=== PATIENT | female | born 1940 | race Caucasian/White ===

== ENCOUNTER 2018-01-26 04:07 | Inpatient (IN) | payer OTHER, MEDICAID ==
--- NOTE | 2018-01-26 04:22 | EDPHY ---
H & P Time Seen by Provider: 01/26/18 04:10 HPI/ROS: Chief Complaint: Cough, difficulty breathing HPI: 77-year-old woman presenting from [facility] with cough and difficulty breathing. Patient has had this for several days per EMS report. She had a chest x-ray yesterday which was negative. Patient has been refusing her Lasix. States she has been refusing this the last 2 days because she has been out out about and does not want have to increasing urination. She only takes 20 mg every morning for edema. No fevers or chills. Cough is nonproductive. correction called EMS because the patient's oxygen saturations were in the 80s. On EMS arrival she was satting at 90% on room air. They did note diffuse expiratory wheezes. No chest pain. No nausea or vomiting. She has been ordered DuoNeb treatments starting 4 days ago. ROS: 10 point Review of Systems is negative except as noted in the HPI. PMH: Hypothyroidism, hyperkalemia, Lewy body dementia, dependent edema Social History: No smoking, no alcohol, no recreational drug use Family History: non-contributory Physical Exam: Gen: Awake, Alert, No Distress HEENT: Nose: no rhinorrhea Eyes: PERRLA, EOMI Mouth: Moist mucosa Neck: Supple, no JVD Chest: nontender, lungs clear to auscultation, no wheezes, bibasilar rales are present Heart: S1, S2 normal, no murmur Abd: Soft, non-tender, no guarding Back: no CVA tenderness, no midline tenderness Ext: 1+ nonpitting edema, there is evidence of venous stasis disease, non- tender, no erythema Skin: no rash Neuro: CN II-XII intact, Sensation grossly intact, Strength 5/5 in bilateral upper and lower extremities - Personal History Tetanus Vaccine Date: unknown - Medical/Surgical History Hx Asthma: No Hx Chronic Respiratory Disease: No Hx Diabetes: No Hx Cardiac Disease: No Hx Renal Disease: No Hx Cirrhosis: No Hx Alcoholism: No Hx HIV/AIDS: No Hx Splenectomy or Spleen Trauma: No Other PMH: pmh- thyroid CA, melanoma, chronic low back pain, arthritis, incontience, 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 psh- thryoidectomy r/t CA - Social History Smoking Status: Never smoked Constitutional: Initial Vital Signs Temperature (C) 37.1 C 01/26/18 04:05 Heart Rate 77 01/26/18 04:05 Respiratory Rate 18 01/26/18 04:05 Blood Pressure 138/87 H 01/26/18 04:05 O2 Sat (%) 90 L 01/26/18 04:05 O2 Delivery Mode Room Air O2 (L/minute) 2 Allergies/Adverse Reactions: Sulfa (Sulfonamide Antibiotics) Allergy (Severe, Verified 09/14/09 14:39) Anaphylaxis COLOR BLUE IN ANY MEDICATION Allergy (Uncoded 09/14/09 14:40) Home Medications: Medication Instructions Recorded Bisacodyl 01/26/18 CRANBERRY 01/26/18 Cetirizine 01/26/18 Ipratropium 01/26/18 Klor-Con M10 01/26/18 Lasix 20 MG (*) 01/26/18 Levothyroxine 01/26/18 Milk of Magnesia 01/26/18 Motrin Ib 01/26/18 Nystatin Powder 01/26/18 Pazeo 01/26/18 Restasis Opht Drops(*) 01/26/18 Tobradex Eye Ointment 01/26/18 Vitamin C 01/26/18 Medical Decision Making - Diagnostics Imaging Results: Chest x-ray has very poor inspiratory effort. There is cardiomegaly. There is some cephalization and some obscuration of the right heart border per my interpretation. Imaging: I viewed and interpreted images myself ED Course/Re-evaluation: 77-year-old woman presenting with shortness of breath worsening over the last couple days. She has oxygen saturations of 87% on room air after a neb treatment by EMS. Patient has no wheezing. She does have some bibasilar rales. She has been refusing her Lasix for the last several days, however she is on 20 mg daily for peripheral edema only. I have not found any records for congestive heart failure. Chest x-ray shows cephalization with very poor inspiratory effort a difficult to assess study. Patient has an elevated BNP. I have discussed with Dr. Shahid, hospitalist. He will admit to his service for further care. He is requesting 20 mg of Lasix IV now. - Data Points Laboratory Results: Laboratory Results 01/26/18 04:37 01/26/18 04:37 01/26/18 01/26/18 04:37 04:37 WBC 7.21 10^3/uL 10^3/uL (3.80-9.50) RBC 4.48 10^6/uL 10^6/uL (4.18-5.33) Hgb 13.9 g/dL g/dL (12.6-16.3) Hct 40.8 % % (38.0-47.0) MCV 91.1 fL fL (81.5-99.8) MCH 31.0 pg pg (27.9-34.1) MCHC 34.1 g/dL g/dL (32.4-36.7) RDW 13.2 % % (11.5-15.2) Plt Count 213 10^3/uL 10^3/uL (150-400) MPV 9.6 fL fL (8.7-11.7) Neut % (Auto) 71.5 % % (39.3-74.2) Lymph % (Auto) 14.4 % L % (15.0-45.0) [place] % (Auto) 10.7 % % (4.5-13.0) Eos % (Auto) 2.4 % % (0.6-7.6) Baso % (Auto) 0.6 % % (0.3-1.7) Nucleat RBC Rel Count 0.0 % % (0.0-0.2) Absolute Neuts (auto) 5.16 10^3/uL 10^3/uL (1.70-6.50) Absolute Lymphs (auto) 1.04 10^3/uL 10^3/uL (1.00-3.00) Absolute Monos (auto) 0.77 10^3/uL 10^3/uL (0.30-0.80) Absolute Eos (auto) 0.17 10^3/uL 10^3/uL (0.03-0.40) Absolute Basos (auto) 0.04 10^3/uL 10^3/uL (0.02-0.10) Absolute Nucleated RBC 0.00 10^3/uL 10^3/uL (0-0.01) Immature Gran % 0.4 % % (0.0-1.1) Immature Gran # 0.03 10^3/uL 10^3/uL (0.00-0.10) Sodium 143 mEq/L mEq/L (135-145) Potassium 3.7 mEq/L mEq/L (3.5-5.2) Chloride 107 mEq/L mEq/L (97-110) Carbon Dioxide 23 mEq/l mEq/l (22-31) Anion Gap 13 mEq/L mEq/L (8-16) BUN 19 mg/dL mg/dL (7-23) Creatinine 0.8 mg/dL mg/dL (0.6-1.0) Estimated GFR > 60 Glucose 99 mg/dL mg/dL (70-100) Calcium 8.1 mg/dL L mg/dL (8.5-10.4) Troponin I < 0.012 ng/mL ng/mL (0.000-0.034) NT-Pro-B Natriuret Pep 967 pg/mL H pg/mL (0-450) Medications Given: Discontinued Medications Furosemide (Lasix Injection) 20 mg IVP EDNOW ONE Stop: 01/26/18 05:41 Last Admin: 01/26/18 06:10 Dose: 20 mg Departure - Departure Disposition: [facility] Inpatient Acute Clinical Impression: Acute exacerbation of congestive heart failure Condition: Fair
[2018-01-26 04:46] LABS: PLATELET COUNT 213 10^3/uL (150-400)
--- NOTE | 2018-01-26 05:37 | CPEKG ---
Heart Rate: 70 RR Interval: 857 P-R Interval: 208 QRSD Interval: 88 QT Interval: 396 QTC Interval: 428 P [place]: 0 QRS [place]: -46 T Wave [place]: 78 EKG Severity - ABNORMAL ECG - EKG Impression: SINUS RHYTHM EKG Impression: LEFT ANTERIOR FASCICULAR BLOCK EKG Impression: ANTERIOR INFARCT, OLD Electronically Signed By: Ehsan Lucas 26-Jan-2018 06:29:21
[2018-01-26] MEDS ORDERED: FUROSEMIDE 20 MG/2 ML VIAL IVP ONE (05:40)
[2018-01-26] MEDS ORDERED: ONDANSETRON 4 MG/2 ML VIAL IVP PRN (05:46)
[2018-01-26] MEDS ORDERED: ACETAMINOPHEN 325 MG TAB PO PRN (05:46)
[2018-01-26] MEDS ORDERED: ONDANSETRON DISINTEGRATING 4 MG TAB PO PRN (05:46)
--- NOTE | 2018-01-26 06:15 | PDGENHP ---
History and Physical - Chief Complaint SOB - History of Present Illness 77 yo F w/ dementia, hypothyroid, and diastolic dysfunction presents with SOB. Patient describes several weeks of progressive SOB, worse when she lay flats. She also complains of about 20 lb weight gain over the last month or two. She denies fevers, chills. She takes furosemide 20 mg qD but may have missed a few doses here and there. She denies chest pain. History Information - Allergies/Home Medication List Allergies/Adverse Reactions: Sulfa (Sulfonamide Antibiotics) Allergy (Severe, Verified 09/14/09 14:39) Anaphylaxis COLOR BLUE IN ANY MEDICATION Allergy (Uncoded 09/14/09 14:40) Home Medications: Bisacodyl 01/26/18 [Last Taken Unknown] CRANBERRY 01/26/18 [Last Taken Unknown] Cetirizine 01/26/18 [Last Taken Unknown] Ipratropium 01/26/18 [Last Taken Unknown] Klor-Con M10 01/26/18 [Last Taken Unknown] Lasix 20 MG (*) 01/26/18 [Last Taken Unknown] Levothyroxine 01/26/18 [Last Taken Unknown] Milk of Magnesia 01/26/18 [Last Taken Unknown] Motrin Ib 01/26/18 [Last Taken Unknown] Nystatin Powder 01/26/18 [Last Taken Unknown] Pazeo 01/26/18 [Last Taken Unknown] Restasis Opht Drops(*) 01/26/18 [Last Taken Unknown] Tobradex Eye Ointment 01/26/18 [Last Taken Unknown] Vitamin C 01/26/18 [Last Taken Unknown] I have personally reviewed and updated: family history, medical history - Past Medical History dementia Additional medical history: Thyroid CA s/p thyroidectomy - Surgical History Reports: thyroid surgery - Family History Positive for: CAD - Social History Smoking Status: Never smoked Review of Systems Review of Systems: ROS: 10pt was reviewed & negative except for what was stated in HPI & below Physical Exam Physical Exam: Temp Pulse Resp BP Pulse Ox 37.1 C 64 18 147/89 H 95 01/26/18 04:05 01/26/18 06:11 01/26/18 06:11 01/26/18 06:11 01/26/18 06:11 O2 (L/minute) 2 Constitutional: no apparent distress, chronically ill appearing Eyes: PERRL, EOMI Ears, Nose, Mouth, Throat: moist mucous membranes, no oral mucosal ulcers Cardiovascular: regular rate and rhythym, systolic murmur, edema (1+ b/l WILFREDO L>R ) Respiratory: no respiratory distress, reduced air movement, inspiratory crackles , rhonchi Gastrointestinal: normoactive bowel sounds, soft, non-tender abdomen Skin: warm, normal color, other (LE changes c/w venous stasis dermatitis) Musculoskeletal: full muscle strength, no muscle tenderness Neurologic: AAOx3, CN II-XII Intact, other (R ptosis) Psychiatric: interacting appropriately, not anxious Lab Data & Imaging Review 01/26/18 04:37 01/26/18 04:37 WBC 7.21 10^3/uL (3.80-9.50) 01/26/18 04:37 RBC 4.48 10^6/uL (4.18-5.33) 01/26/18 04:37 Hgb 13.9 g/dL (12.6-16.3) 01/26/18 04:37 Hct 40.8 % (38.0-47.0) 01/26/18 04:37 MCV 91.1 fL (81.5-99.8) 01/26/18 04:37 MCH 31.0 pg (27.9-34.1) 01/26/18 04:37 MCHC 34.1 g/dL (32.4-36.7) 01/26/18 04:37 RDW 13.2 % (11.5-15.2) 01/26/18 04:37 Plt Count 213 10^3/uL (150-400) 01/26/18 04:37 MPV 9.6 fL (8.7-11.7) 01/26/18 04:37 Neut % (Auto) 71.5 % (39.3-74.2) 01/26/18 04:37 Lymph % (Auto) 14.4 % (15.0-45.0) L 01/26/18 04:37 [place] % (Auto) 10.7 % (4.5-13.0) 01/26/18 04:37 Eos % (Auto) 2.4 % (0.6-7.6) 01/26/18 04:37 Baso % (Auto) 0.6 % (0.3-1.7) 01/26/18 04:37 Nucleat RBC Rel Count 0.0 % (0.0-0.2) 01/26/18 04:37 Absolute Neuts (auto) 5.16 10^3/uL (1.70-6.50) 01/26/18 04:37 Absolute Lymphs (auto) 1.04 10^3/uL (1.00-3.00) 01/26/18 04:37 Absolute Monos (auto) 0.77 10^3/uL (0.30-0.80) 01/26/18 04:37 Absolute Eos (auto) 0.17 10^3/uL (0.03-0.40) 01/26/18 04:37 Absolute Basos (auto) 0.04 10^3/uL (0.02-0.10) 01/26/18 04:37 Absolute Nucleated RBC 0.00 10^3/uL (0-0.01) 01/26/18 04:37 Immature Gran % 0.4 % (0.0-1.1) 01/26/18 04:37 Immature Gran # 0.03 10^3/uL (0.00-0.10) 01/26/18 04:37 Sodium 143 mEq/L (135-145) 01/26/18 04:37 Potassium 3.7 mEq/L (3.5-5.2) 01/26/18 04:37 Chloride 107 mEq/L (97-110) 01/26/18 04:37 Carbon Dioxide 23 mEq/l (22-31) 01/26/18 04:37 Anion Gap 13 mEq/L (8-16) 01/26/18 04:37 BUN 19 mg/dL (7-23) 01/26/18 04:37 Creatinine 0.8 mg/dL (0.6-1.0) 01/26/18 04:37 Estimated GFR > 60 01/26/18 04:37 Glucose 99 mg/dL (70-100) 01/26/18 04:37 Calcium 8.1 mg/dL (8.5-10.4) L 01/26/18 04:37 Troponin I < 0.012 ng/mL (0.000-0.034) 01/26/18 04:37 NT-Pro-B Natriuret Pep 967 pg/mL (0-450) H 01/26/18 04:37 Visualized and Interpreted Chest x-ray results: Yes Chest X-Ray results: other (Vascular congestion) Visualized and Interpreted EKG results: Yes EKG Interpretation: Positive for: normal sinsus rhythm, other (LAFB, poor R wave progression) Assessment & Plan Assessment: 77 yo F p/w SOB 2/2 diastolic CHF exacerbation. Plan: 1. Acute exacerbation of chronic,diastolic HF - Several weeks of progressive SOB , orthopnea, and weight gain. TTE in 2016 showed diastolic dysfunction and preserved EF. BNP>900. She denies symptoms c/w infection. - Furosemide 20 mg IV BID - Daily weights, monitor I/os, cardiac diet 2. Dementia - Describes as possibly Lewy body or FTD; patient is appropriate and cooperative on my exam. - Continue home medications 3. Hx of thyroid CA - S/p thyroidectomy, now on LTX - Will check TSH to assure not contributing to above Diet - Cardiac Code - Full Ppx - LMWH Dispo - Admit under observation status
[2018-01-26] MEDS ORDERED: BISACODYL 10 MG SUPP PR PRN (10:24)
[2018-01-26] MEDS ORDERED: DOCUSATE SODIUM 100 MG CAP PO PRN (10:29)
[2018-01-26] MEDS ORDERED: MAGNESIUM HYDROXIDE 30 ML UDCUP PO PRN (10:29)
[2018-01-26] MEDS ORDERED: IPRATROPIUM/ALBUTEROL 3 ML DEYVIAL IH PRN (10:29)
[2018-01-26] MEDS ORDERED: LEVOTHYROXINE 125 MCG TAB PO SCH (10:30)
[2018-01-26] MEDS ORDERED: POTASSIUM CL 10 MEQ TAB PO SCH (10:30)
[2018-01-26] MEDS ORDERED: PROTOCOL POTASSIUM 1 DOSE MISC PRN (10:32)
--- NOTE | 2018-01-26 11:25 | WOCRNPDOC ---
WOCRN Advanced Assessment Note - Skin Integrity Problem, Advanced Assess Left Lower Leg Dressing Type: Foam Bordered Dressing Description: Clean/Dry Exudate Amount: Scant Exudate Color: Yellow Exudate Characteristic(s): Clear Integumentary Issue Intervention: Dressing Applied, Dressing Initialed & Dated, Hydrogel Applied Krista Wound Tissue: Hemosiderin Staining, Venous Dermatitis Krisat Wound Swelling: None Wound Bed Color: Red, Yellow Wound Bed Constitution: Granulation Tissue (60%), Red/[place] - Non Granular Tissue (40%) Wound Edges: Irregular Site Odor: None Site Measurement - Head-to-Toe Length X Width X Depth (cm): 2cmx2.5cmx0.1cm Skin Integrity Problem Comment: Wound on lower anterior aspect of L leg, appearance consistent w/ venous stasis wound. Patient's lower legs were previously edematous; now edema is resolving, and skin has a puckered appearance. No significant edema noted currently, though patient does have chronic skin changes associated w/ venous insufficiency. Wound itself is discrete w/ no periwound swelling or erythema. Wound will likely resolve w/ adequate diuresis. Hydrogel and Allevyn applied. Wound care will follow up again on 02/01.
[2018-01-26] MEDS: ENOXAPARIN 40 MG/0.4 ML SYR SC SCH (11:33)
[2018-01-26] MEDS: CETIRIZINE 10 MG TAB PO SCH (11:43)
[2018-01-26] MEDS: POLYETHYLENE GLYCOL 3350 17 GM PKT PO SCH (11:44)
[2018-01-26] MEDS: NYSTATIN POWDER 15 GM BTL TP SCH ×2 (11:45→20:53)
[2018-01-26] MEDS: cycloSPORINE 0.05% 30 DROPERETTE/BOX EACHEYE SCH ×2 (11:46→20:54)
[2018-01-26] MEDS: OLOPATADINE HCL EACHEYE SCH (11:47)
--- NOTE | 2018-01-26 12:30 | ASMTCMCOM ---
CM Note CM Note Notes: Chart reviewed for discharge planning purposes. Admitted via ED from [facility] with increasing cough, Has notable been refusing her lasix. Her BNP is elevated. Needs to be determined. Referral placed in allscripts to [facility] where she will likely return. Plan: To [facility] when medically cleared for discharge Date Signed: 01/26/2018 12:29 PM Electronically Signed By:Meme Cuevas RN
--- NOTE | 2018-01-26 13:37 | ECHO ---
[email or web address] [address] [address] Main: [phone] Fax: Transthoracic Echocardiogram Name: FRANCISCA KENNEY MR#: [id number] Study Date: 01/26/2018 Study Time: 10:55 AM Date of : 1940 Age: 77 year(s) Height: 172.7 cm (68 in.) Weight: 72.58 kg (160 lb.) BSA: 1.86 m2 Gender: Female Examination: Echo Indication: Acute Heart Failure Image Quality: Contrast: Requested by: Sravani Weiss BP: 127 mmHg/76 mmHg Heart Rate: Rhythm: Indication: Acute Heart Failure Procedure Staff Die Finisher Forging: Yemi Godinez RDCS Reading Physician: Gracia Walters MD Requesting Provider: Conclusions: Normal size left ventricle. No LV hypertrophy. Normal global systolic LV function. EF is 74 %. No regional wall motion abnormality. Grade 1 diastolic dysfunction (abnormal relaxation). Normal size right ventricle. Normal RV function. no significant valvular disease. No previous echo Measurements: Chambers Valvular Assessment AV/MV Valvular Assessment TV/PV Normal Normal Normal Name Value Range Name Value Range Name Value Range Ao Lata (MM): 3.2 cm (2.2 cm-3.7 AV Vmax: 1.57 m/s (1 m/s-1.7 PV Vmax: 0.94 m/s (0.6 m/s-0.9 cm) m/s) m/s) IVSd (2D): 1.0 cm (0.6 cm-1.1 AV maxP mmHg ( - ) PV PGmax: 4 mmHg ( - ) cm) LVOT Vmax: 0.78 m/s (0.7 m/s-1.1 LVDd (2D): 4.3 cm (3.9 cm-5.3 m/s) cm) MV E Vmax: 0.60 m/s ( - ) LVDs (2D): 2.4 cm (2.1 cm-4 MV A Vmax: 0.93 m/s ( - ) cm) MV E/A: 0.65 ( - ) LVPWd (2D): 1.1 cm ( - ) LVEF (2D): 74 (>=54 %) Continued Measurements: Chambers Valvular Assessment AV/MV Name Value Name Value Patient: FRANCISCA KENNEY Study Date: 01/26/2018 Page 1 of 2 10:55 AM LADs Lon.3 cm MV E' Septal: 0.04 m/s LA Area: 20.1 cm2 MV E/E' Septal: 14.00 LA Volume: 63 ml MV E/E' Lateral: 14.60 LA Volume Index: 33.9 ml/m2 Findings: Left Ventricle: Normal size left ventricle. No LV hypertrophy. Normal global systolic LV function. EF is 74 %. No regional wall motion abnormality. Grade 1 diastolic dysfunction (abnormal relaxation). Right Ventricle: Normal size right ventricle. Normal RV function. Left Atrium: The left atrium is normal in size. Right Atrium: The right atrium is normal in size. Mitral Valve: Mild mitral valve leaflet calcification is present. Trivial mitral valve regurgitation. Aortic Valve: Mild aortic cusp calcification is noted. The aortic valve is tri-leaflet. There is no aortic valve regurgitation. Tricuspid Valve: The tricuspid valve appears normal. Trivial tricuspid valve regurgitation. The pulmonary artery pressure is normal. Pulmonic Valve: The pulmonic valve is normal in appearance and function. Aorta: The aorta is normal. Pericardium: Small pericardial effusion. There is a small circumferential pericardial effusion with echogenicity within. There is no evidence of a pericardial tamponade. (No Signature Object) Patient: FRANCISCA KENNEY Study Date: 01/26/2018 Page 2 of 2 10:55 AM [id number]
[2018-01-26] MEDS: FUROSEMIDE 20 MG/2 ML VIAL IVP SCH ×2 (13:58→20:53)
[2018-01-26] MEDS: LEVOTHYROXINE 150 MCG TAB PO SCH (14:54)
--- NOTE | 2018-01-26 15:18 | HOSPPROG ---
Hospitalist Progress Note Assessment/Plan: Acute exacerbation of chronic,diastolic HF - Still a bit orthopneic. Echo shows nl EF, grade 1 diastolic dysfunction - Cont Furosemide 20 mg IV BID - Daily weights, monitor I/os, cardiac diet - also consider viral URI, check respiratory viral panel Dementia - Daughter has concerns about decisional capacity, especially related to her refusing medications at SNF - Continue home medications - Ethics consult to help assess decisional capacity Hx of thyroid CA - S/p thyroidectomy, now on LTX. TSH elevated - increase levothyroxine - will need rpt TSH in 4-6 weeks Diet - Cardiac Code - Full Ppx - LMWH Dispo - Cont obs, poss d/c tomorrow, will reassess Subjective: Pt doing ok. Coughing a bit. No fevers. She endorses orthopnea, LE edema is a little better today. No CP. Objective: Vital Signs Temp Pulse Resp BP Pulse Ox 36.9 C 87 18 146/88 H 90 L 01/26/18 11:54 01/26/18 11:54 01/26/18 11:54 01/26/18 11:54 01/26/18 11:54 01/25/18 01/26/18 01/27/18 05:59 05:59 05:59 Intake Total 240 Output Total 750 Balance -510 - Physical Exam Constitutional: no apparent distress Eyes: PERRL Ears, Nose, Mouth, Throat: moist mucous membranes Cardiovascular: regular rate and rhythym Respiratory: no respiratory distress, inspiratory crackles Gastrointestinal: normoactive bowel sounds, soft, non-tender abdomen Skin: warm Musculoskeletal: other (1-2+ b/l LE edema) Psychiatric: poor judgement, poor memory ICD10 Worksheet Patient Problems: Problems Problem Status Onset Acute exacerbation of congestive heart failure Acute Abdominal pain Acute Altered mental status Acute Constipation Acute Delusions Acute Urinary tract infection Acute
[2018-01-26] MEDS ORDERED: NON-FORMULARY NEW DRUG (Polyvinyl Alcohol/Povidone/Pf [Refresh Classic Eye Drops] 1 EACH) EACHEYE SCH (16:00)
[2018-01-26] MEDS: TEARS/DEXTRAN 70/HYPROMELLOSE 15 ML OPHT.BTL EACHEYE SCH ×2 (16:28→20:53)
[2018-01-26] MEDS ORDERED: POTASSIUM CL 10 MEQ TAB PO ONE (19:52)
[2018-01-26] MEDS: TOBRAMYCIN/DEXAMETH 3.5 GM OPHT.OINT EACHEYE SCH (20:54)
[2018-01-26] MEDS ORDERED: traZODone 50 MG TAB PO SCH (21:00)
[2018-01-27] MEDS: LEVOTHYROXINE 150 MCG TAB PO SCH (06:25)
[2018-01-27] MEDS ORDERED: POTASSIUM CL 10 MEQ TAB PO ONE ×2 (07:30→20:02)
[2018-01-27] MEDS: POLYETHYLENE GLYCOL 3350 17 GM PKT PO SCH (09:02)
[2018-01-27] MEDS: FUROSEMIDE 20 MG/2 ML VIAL IVP SCH ×2 (09:02→20:32)
[2018-01-27] MEDS: ENOXAPARIN 40 MG/0.4 ML SYR SC SCH (09:02)
[2018-01-27] MEDS: CETIRIZINE 10 MG TAB PO SCH (09:03)
[2018-01-27] MEDS: OLOPATADINE HCL EACHEYE SCH (09:15)
[2018-01-27] MEDS: NYSTATIN POWDER 15 GM BTL TP SCH ×2 (09:15→20:32)
[2018-01-27] MEDS: TEARS/DEXTRAN 70/HYPROMELLOSE 15 ML OPHT.BTL EACHEYE SCH ×3 (09:16→20:31)
[2018-01-27] MEDS: cycloSPORINE 0.05% 30 DROPERETTE/BOX EACHEYE SCH ×3 (09:16→20:33)
[2018-01-27] MEDS: POTASSIUM CL 10 MEQ TAB PO SCH (10:59)
--- NOTE | 2018-01-27 13:14 | HOSPPROG ---
Hospitalist Progress Note Assessment/Plan: AHRF 2/2 acute exacerbation of chronic, diastolic HF + viral URI (rhino/ enterovirus) - Echo shows nl EF, grade 1 diastolic dysfunction. - Cont Furosemide 20 mg IV BID - Daily weights, monitor I/os, cardiac diet - trial xopenex nebs, add guaifenesin, supportive care for viral component - defer steroids due to risk of worsening agitation with LBD - wean O2 as able Dementia - Lewy body disease. Followed by Dr. Quiroga. - unable to give anti-psychotics - cont home pm trazodone - as a last resort, will provide prn order for very low dose ativan if agitation becomes a safety issue Hx of thyroid CA - S/p thyroidectomy, now on LTX. TSH elevated - increased levothyroxine - will need rpt TSH in 4-6 weeks Diet - Cardiac Code - Full Ppx - LMWH Dispo - Change to inpt for ongoing management of hypoxemia, HF and viral URI. Daughter, Isabella, is MDPOA. Discussed care plan with daughter and RN. Hopefully home in am. Subjective: Pt is up in chair. Denies CP. She has wet cough. LE edema a little better. No fevers. Denies SOB at rest. She is intermittently agitated , wants to go home. Objective: Vital Signs Temp Pulse Resp BP Pulse Ox 37.1 C 75 17 148/79 H 91 L 01/27/18 12:00 01/27/18 12:00 01/27/18 12:00 01/27/18 12:00 01/27/18 12:00 Microbiology 01/26/18 16:40 Respiratory Panel (PCR) - Final Nasal, Sinus - Anaerobic Tube/Swab Human Rhinovirus/Enterovirus Laboratory Results 01/27/18 03:22 01/26/18 01/27/18 01/28/18 05:59 05:59 05:59 Intake Total 940 Output Total 750 200 Balance 190 -200 - Physical Exam Constitutional: no apparent distress Eyes: PERRL Ears, Nose, Mouth, Throat: moist mucous membranes Cardiovascular: regular rate and rhythym Respiratory: no respiratory distress, reduced air movement, expiratory wheeze, inspiratory crackles Gastrointestinal: normoactive bowel sounds, soft, non-tender abdomen Skin: warm Musculoskeletal: other (1-2+ b/l LE brawny edema) Psychiatric: agitated, poor insight, poor judgement, poor memory ICD10 Worksheet Patient Problems: Problems Problem Status Onset Acute exacerbation of congestive heart failure Acute Abdominal pain Acute Altered mental status Acute Constipation Acute Delusions Acute Urinary tract infection Acute
[2018-01-27] MEDS ORDERED: traZODone 50 MG TAB PO SCH ×2 (13:52→19:00)
[2018-01-27] MEDS ORDERED: LORazepam 2 MG/ML INJ IVP PRN (13:59)
--- NOTE | 2018-01-27 14:21 | PDMN ---
Medical Necessity Medical necessity: C/M review: Patient meets INPT criterie under MCG M-190 [place] Failure: Acute exacerbation of chronic, diastolic heart failure, orthopnea, normal EF, grade1 diastolic dysfunction on echocardiogram, hypoxemia , viral upper respiratory infection, elevated TSH - 7.560, requiring Ethics consult to help assist decisional capacity, planned Palliative Care consult, trial Xopenex nebs, defer steroids due risk of worsening agitation with Lewy body dementia, agitation, ongoing IV Lasix BID, increased oral levothyroxine to 150 mcg daily, cardiac monitoring, pulse oximetry, supplemental O2- wean as able, daily weights, monitor I&O, acute inpt PT/OT, comorbid Lewy body dementia (unable to give antipsychotics), history of thyroid cancer S/P thyroidectomy. anticipates . 2 MN LOS for ongoing med nec for eval and TX of above. patient is Medicare Advantage which follows guidelines CMS puts forth.
[2018-01-27] MEDS: guaiFENesin 600 MG TAB.ER PO SCH ×2 (15:09→20:32)
[2018-01-27] MEDS: LEVALBUTEROL 1.25 MG/3 ML DEYVIAL IH SCH ×2 (16:45→22:23)
[2018-01-27] MEDS: traZODone 50 MG TAB PO SCH (18:02)
[2018-01-27] MEDS: TOBRAMYCIN/DEXAMETH 3.5 GM OPHT.OINT EACHEYE SCH (20:31)
[2018-01-27] MEDS ORDERED: LEVALBUTEROL 1.25 MG/3 ML DEYVIAL IH SCH (22:00)
[2018-01-27] MEDS: GUAIFENESIN/DM 10 ML UDCUP PO PRN (22:17)
[2018-01-28] MEDS: LEVOTHYROXINE 150 MCG TAB PO SCH (06:17)
[2018-01-28] MEDS ORDERED: POTASSIUM CL 10 MEQ TAB PO ONE (07:33)
[2018-01-28] MEDS: POLYETHYLENE GLYCOL 3350 17 GM PKT PO SCH (07:57)
[2018-01-28] MEDS: POTASSIUM CL 10 MEQ TAB PO SCH (07:57)
[2018-01-28] MEDS: guaiFENesin 600 MG TAB.ER PO SCH ×2 (07:57→19:52)
[2018-01-28] MEDS: CETIRIZINE 10 MG TAB PO SCH (07:57)
[2018-01-28] MEDS: FUROSEMIDE 20 MG/2 ML VIAL IVP SCH ×2 (07:57→19:49)
[2018-01-28] MEDS: cycloSPORINE 0.05% 30 DROPERETTE/BOX EACHEYE SCH ×3 (07:58→22:38)
[2018-01-28] MEDS: ENOXAPARIN 40 MG/0.4 ML SYR SC SCH (07:58)
[2018-01-28] MEDS: GUAIFENESIN/DM 10 ML UDCUP PO PRN ×2 (07:59→19:49)
[2018-01-28] MEDS: NYSTATIN POWDER 15 GM BTL TP SCH ×2 (07:59→19:49)
[2018-01-28] MEDS: OLOPATADINE HCL EACHEYE SCH (08:00)
[2018-01-28] MEDS: TEARS/DEXTRAN 70/HYPROMELLOSE 15 ML OPHT.BTL EACHEYE SCH ×3 (08:06→22:38)
[2018-01-28] MEDS: LEVALBUTEROL 1.25 MG/3 ML DEYVIAL IH SCH ×4 (11:50→20:54)
--- NOTE | 2018-01-28 12:04 | HOSPPROG ---
Hospitalist Progress Note Assessment/Plan: AHRF 2/2 acute exac of chronic, diastolic HF + viral URI (rhino/enterovirus) - Echo shows nl EF, grade 1 diastolic dysfunction. Weight still up several kg, but LE edema improving. - Cont Lasix 20 mg IV BID - follow daily wts, I&O's not accurate with incontinence - cont xopenex nebs, guaifenesin, supportive care for viral URI - defer steroids due to risk of worsening agitation with LBD - wean O2 as able, 2 LPM currently, not on home O2 Dementia - Lewy body disease. Followed by Dr. Dominguez. Quite agitated yesterday, but very stable and pleasant today. - anti-psychotics contraindicated - cont pm trazodone - as a last resort, will provide prn order for very low dose ativan if agitation becomes a safety issue Hx of thyroid CA - S/p thyroidectomy, now on LTX. TSH elevated - increased levothyroxine - will need rpt TSH in 4-6 weeks Diet - Cardiac Code - Full Ppx - LMWH Dispo - Cont inpt. Daughter, Isabella, is MDPOA. Discussed care plan with daughter and RN. Likely return to SNF in 1-2 days +/- home O2. Subjective: Pt doing much better today. Up in chair, pleasant and interactive. Not agitated. Slept well last night. Still endorses orthopnea. LE edema improved. Still coughing. No CP. No fevers. Objective: Vital Signs Temp Pulse Resp BP Pulse Ox 36.8 C 74 16 121/78 H 90 L 01/28/18 11:30 01/28/18 11:30 01/28/18 11:30 01/28/18 11:30 01/28/18 11:30 Laboratory Results 01/28/18 04:16 01/27/18 01/28/18 01/29/18 05:59 05:59 05:59 Intake Total 940 1100 400 Output Total 750 850 225 Balance 190 250 175 - Physical Exam Constitutional: no apparent distress Eyes: PERRL Ears, Nose, Mouth, Throat: moist mucous membranes Cardiovascular: regular rate and rhythym Respiratory: no respiratory distress, expiratory wheeze, inspiratory crackles Gastrointestinal: normoactive bowel sounds, soft, non-tender abdomen Skin: warm Musculoskeletal: full muscle strength Psychiatric: interacting appropriately ICD10 Worksheet Patient Problems: Problems Problem Status Onset Acute exacerbation of congestive heart failure Acute Abdominal pain Acute Altered mental status Acute Constipation Acute Delusions Acute Urinary tract infection Acute
[2018-01-28] MEDS: traZODone 50 MG TAB PO SCH (18:35)
[2018-01-28] MEDS: TOBRAMYCIN/DEXAMETH 3.5 GM OPHT.OINT EACHEYE SCH (22:38)
[2018-01-29] MEDS: LEVOTHYROXINE 150 MCG TAB PO SCH (06:50)
[2018-01-29] MEDS: POTASSIUM CL 10 MEQ TAB PO SCH (09:02)
[2018-01-29] MEDS: guaiFENesin 600 MG TAB.ER PO SCH ×2 (09:08→21:37)
[2018-01-29] MEDS: FUROSEMIDE 20 MG/2 ML VIAL IVP SCH ×2 (09:08→21:37)
[2018-01-29] MEDS: CETIRIZINE 10 MG TAB PO SCH (09:09)
[2018-01-29] MEDS: ENOXAPARIN 40 MG/0.4 ML SYR SC SCH (09:09)
[2018-01-29] MEDS: POLYETHYLENE GLYCOL 3350 17 GM PKT PO SCH (09:10)
[2018-01-29] MEDS: cycloSPORINE 0.05% 30 DROPERETTE/BOX EACHEYE SCH ×3 (09:11→21:58)
[2018-01-29] MEDS: OLOPATADINE HCL EACHEYE SCH (09:11)
[2018-01-29] MEDS: TEARS/DEXTRAN 70/HYPROMELLOSE 15 ML OPHT.BTL EACHEYE SCH ×3 (09:11→21:57)
[2018-01-29] MEDS: LEVALBUTEROL 1.25 MG/3 ML DEYVIAL IH SCH ×3 (09:57→21:27)
--- NOTE | 2018-01-29 12:54 | ASMTCMCOM ---
CM Note CM Note Notes: 01/29/2018 Case Management Note Discussed case with daughter Isabella on the phone. Reiterated that decisional capacity waxes and wanes and any findings here at [facility] will not carry over to [facility]. At Isabella's request emailed release of information for medical records. Requested Isabella fax back signed copy of release. Discussed benefits of Palliative Care. Isabella in agreement. Faxed referral to [facility]. Spoke with Leanne Go on the phone. [facility] to contact Isabella for info and will see pt at [facility] after d/c. Updated [facility] on the phone. [facility] plans to start a dementia/memory care unit this summer. Pt to return to [facility] upon d/c to the [facility] unit where pt resides. Case Management d/c poc: return to [facility] with [facility]. Case Management to follow. Date Signed: 01/29/2018 12:54 PM Electronically Signed By:Heavenly Subramanian RN
--- NOTE | 2018-01-29 13:38 | HOSPPROG ---
Hospitalist Progress Note Assessment/Plan: #Acutely on chronic decompensated diastolic HF -diuresing with IV Lasix #Acute viral infection: supportive care #Acute hypoxic resp failure: multifactorial with infection, edema #Lewy Body dementia with agitation: avoid central-acting medications. Followed Dr. Dominguez -spoke with Dr. Staton who suggested Seroquel for agitation. Will speak with daughter given sushant adame #h/o thyroid cancer: s/p thyroidectomy. LT4 #Goals: had lengthy conversation with daughter, Isabella (MDPOA). Emphasized that she and her family need to discuss care from now forward. Dementia will likely interfere with medical care,(i.e)patient intermittently refuses home Lasix. Asked if mother would want full medical treatment including future hospitalizations vs. Hospice care. She wll have meeting with her family -Palliative care will be arranged outpatient #Diet: 2gram sodium #DVT ppx: Lovenox #Disp: DC back to [facility] tomorrow if clinically stable Time spent on visit: 60 min bedside, reviewing notes/labs. Remaining time d/w Dr. Staton, and with daughter on phone Subjective: very agitated Objective: Vital Signs Temp Pulse Resp BP Pulse Ox 36.8 C 80 17 143/78 H 94 01/29/18 07:01 01/29/18 09:59 01/29/18 07:01 01/29/18 07:01 01/29/18 09:59 Laboratory Results 01/29/18 03:34 01/28/18 01/29/18 01/30/18 05:59 05:59 05:59 Intake Total 1100 1300 Output Total 850 825 300 Balance 250 250 -300 - Time Spent With Patient Time Spent with Patient: greater than 35 minutes Time Spent with Patient: Greater than 35 minutes spent on this patients care, greater than 50% of time spent counseling, educating, and coordinating care regarding the above mentioned plan. - Physical Exam Constitutional: chronically ill appearing Eyes: PERRL Ears, Nose, Mouth, Throat: moist mucous membranes Cardiovascular: regular rate and rhythym, edema (+1 ankle edema) Respiratory: no respiratory distress Gastrointestinal: normoactive bowel sounds Genitourinary: no bladder fullness Skin: warm Musculoskeletal: full muscle strength Neurologic: AAOx3, CN II-XII Intact Psychiatric: encephalopathic, depressed ICD10 Worksheet Patient Problems: Problems Problem Status Onset Acute exacerbation of congestive heart failure Acute Abdominal pain Acute Altered mental status Acute Constipation Acute Delusions Acute Urinary tract infection Acute
[2018-01-29] MEDS: POTASSIUM CL 10 MEQ TAB PO ONE ×2 (16:29→16:46)
[2018-01-29] MEDS: NYSTATIN POWDER 15 GM BTL TP SCH ×2 (19:12→22:14)
[2018-01-29] MEDS ORDERED: MELATONIN 3 MG TAB PO SCH (21:00)
[2018-01-29] MEDS: GUAIFENESIN/DM 10 ML UDCUP PO PRN (21:37)
[2018-01-29] MEDS: traZODone 50 MG TAB PO SCH (21:37)
[2018-01-29] MEDS: TOBRAMYCIN/DEXAMETH 3.5 GM OPHT.OINT EACHEYE SCH ×2 (21:44→21:58)
[2018-01-30] MEDS: GUAIFENESIN/DM 10 ML UDCUP PO PRN ×2 (02:11→11:32)
[2018-01-30] MEDS: LEVOTHYROXINE 150 MCG TAB PO SCH (06:12)
[2018-01-30] MEDS: CETIRIZINE 10 MG TAB PO SCH (08:22)
[2018-01-30] MEDS: FUROSEMIDE 20 MG/2 ML VIAL IVP SCH (08:22)
[2018-01-30] MEDS: ENOXAPARIN 40 MG/0.4 ML SYR SC SCH (08:22)
[2018-01-30] MEDS: POLYETHYLENE GLYCOL 3350 17 GM PKT PO SCH (08:23)
[2018-01-30] MEDS: guaiFENesin 600 MG TAB.ER PO SCH (08:23)
[2018-01-30] MEDS: POTASSIUM CL 10 MEQ TAB PO SCH (08:23)
[2018-01-30] MEDS: NYSTATIN POWDER 15 GM BTL TP SCH (08:24)
[2018-01-30] MEDS: TEARS/DEXTRAN 70/HYPROMELLOSE 15 ML OPHT.BTL EACHEYE SCH (08:24)
[2018-01-30] MEDS: cycloSPORINE 0.05% 30 DROPERETTE/BOX EACHEYE SCH (08:42)
[2018-01-30] MEDS: OLOPATADINE HCL EACHEYE SCH (08:42)
[2018-01-30] MEDS: LEVALBUTEROL 1.25 MG/3 ML DEYVIAL IH SCH (09:13)
[2018-01-30 11:31] VITALS: BP 109/76
--- NOTE | 2018-01-30 11:56 | PDIAF ---
- Diagnosis Diagnosis: URI infection Code Status: Full Code - Medication Management Discharge Medications: Medications to Continue on Transfer Ascorbic Acid [Vitamin C 500 mg (*)] 1,000 mg PO BID 01/26/18 [Last Taken Unknown] Benzocaine/Menthol 31/12 [Cepacol Lozenge] 1 ea PO Q2 PRN 01/26/18 [Last Taken Unknown] Bisacodyl [Dulcolax] 10 mg RC DAILY PRN 01/26/18 [Last Taken Unknown] Cetirizine [ZyrTEC 10 mg (*)] 10 mg PO DAILY 01/26/18 [Last Taken Unknown] Docusate Sodium [Colace 100 MG (*)] 100 mg PO DAILY PRN 01/26/18 [Last Taken Unknown] Herbals/Supplements -Info Only 1 ea PO DAILY 01/26/18 [Last Taken Unknown] Ipratropium/Albuterol [Duoneb (*)] 3 ml IH Q4 PRN 01/26/18 [Last Taken Unknown] Levothyroxine [Synthroid 125 mcg (*)] 125 mcg PO DAILY06 01/26/18 [Last Taken Unknown] Magnesium Hydroxide [Milk of Magnesia] 30 ml PO DAILY PRN 01/26/18 [Last Taken Unknown] Multivitamins W-Minerals [Thera M Plus Tablet (*)] 1 each PO DAILY 01/26/18 [ Last Taken Unknown] Nystatin Powder [Mycostatin Powder] 1 marie TP BID 01/26/18 [Last Taken Unknown] Olopatadine HCl [Pazeo] 1 drop EACHEYE DAILY 01/26/18 [Last Taken Unknown] Polyethylene Glycol 3350 [Miralax 17 gm (*)] 17 gm PO DAILY 01/26/18 [Last Taken Unknown] Polyvinyl Alcohol/Povidone/Pf [Refresh Classic Eye Drops] 1 each EACHEYE TID 08/05 [Last Taken Unknown] Sennosides/Docusate Sodium [Senokot-S] 2 each PO BID 01/26/18 [Last Taken Unknown] Tobramycin/Dexamethasone [Tobradex Eye Ointment] 1 marie EACHEYE HS 01/26/18 [ Last Taken Unknown] cycloSPORINE 0.05% [Restasis Opht Drops(*)] 1 drop EACHEYE BID 01/26/18 [Last Taken Unknown] guaiFENesin/DEXTROMETHORPHAN [Robitussin Dm Oral Liquid (*)] 10 ml PO Q6 PRN 08/05 [Last Taken Unknown] traZODone [traZODONE 50MG (*)] 75 mg PO HS 01/26/18 [Last Taken Unknown] Melatonin [Melatonin 3 MG (*)] 3 mg PO HS tab 01/29/18 [Last Taken Unknown] Furosemide [Lasix 20 MG (*)] 20 mg PO DAILY #30 tab 01/30/18 [Last Taken Unknown ] Ibuprofen [Motrin (*)] 200 mg PO DAILY PRN #30 tab 01/30/18 [Last Taken Unknown] Ibuprofen [Motrin (*)] 400 mg PO HS PRN #30 tab 01/30/18 [Last Taken Unknown] Discharge Medications: Refer to the Discharge Home Medication list for PRN reason. - Orders Services needed: Registered Nurse, Certified Acute Care Physical Therapist, Physical Therapy Isolation Type: Droplet Isolation Diet Recommendation: sodium restricted Diet Texture: Regular Texture Diet Additional Instructions: Dressing change order for L anterior lower leg: to be changed every 3 days and as needed until healed. 1) cleanse w/ NS and gauze. 2) apply skin prep to jamaal-wound skin. 3) apply Hydrogel wound gel to wound bed. 4) cover w/ Allevyn Life or other bordered foam dressing. CALIXTO Bernal - Labs/Radiology BMP Date: 02/02/18 - Follow Up Care Current Providers and Referrals: [facility] [Other] - As per Instructions
--- NOTE | 2018-01-30 14:07 | PDIAF ---
- Diagnosis Diagnosis: URI infection Code Status: Full Code - Medication Management Discharge Medications: Medications to Continue on Transfer Ascorbic Acid [Vitamin C 500 mg (*)] 1,000 mg PO BID 01/26/18 [Last Taken Unknown] Benzocaine/Menthol 31/12 [Cepacol Lozenge] 1 ea PO Q2 PRN 01/26/18 [Last Taken Unknown] Bisacodyl [Dulcolax] 10 mg RC DAILY PRN 01/26/18 [Last Taken Unknown] Cetirizine [ZyrTEC 10 mg (*)] 10 mg PO DAILY 01/26/18 [Last Taken Unknown] Docusate Sodium [Colace 100 MG (*)] 100 mg PO DAILY PRN 01/26/18 [Last Taken Unknown] Herbals/Supplements -Info Only 1 ea PO DAILY 01/26/18 [Last Taken Unknown] Ipratropium/Albuterol [Duoneb (*)] 3 ml IH Q4 PRN 01/26/18 [Last Taken Unknown] Levothyroxine [Synthroid 125 mcg (*)] 125 mcg PO DAILY06 01/26/18 [Last Taken Unknown] Magnesium Hydroxide [Milk of Magnesia] 30 ml PO DAILY PRN 01/26/18 [Last Taken Unknown] Multivitamins W-Minerals [Thera M Plus Tablet (*)] 1 each PO DAILY 01/26/18 [ Last Taken Unknown] Nystatin Powder [Mycostatin Powder] 1 marie TP BID 01/26/18 [Last Taken Unknown] Olopatadine HCl [Pazeo] 1 drop EACHEYE DAILY 01/26/18 [Last Taken Unknown] Polyethylene Glycol 3350 [Miralax 17 gm (*)] 17 gm PO DAILY 01/26/18 [Last Taken Unknown] Polyvinyl Alcohol/Povidone/Pf [Refresh Classic Eye Drops] 1 each EACHEYE TID 08/05 [Last Taken Unknown] Sennosides/Docusate Sodium [Senokot-S] 2 each PO BID 01/26/18 [Last Taken Unknown] Tobramycin/Dexamethasone [Tobradex Eye Ointment] 1 marie EACHEYE HS 01/26/18 [ Last Taken Unknown] cycloSPORINE 0.05% [Restasis Opht Drops(*)] 1 drop EACHEYE BID 01/26/18 [Last Taken Unknown] guaiFENesin/DEXTROMETHORPHAN [Robitussin Dm Oral Liquid (*)] 10 ml PO Q6 PRN 08/05 [Last Taken Unknown] traZODone [traZODONE 50MG (*)] 75 mg PO HS 01/26/18 [Last Taken Unknown] Melatonin [Melatonin 3 MG (*)] 3 mg PO HS tab 01/29/18 [Last Taken Unknown] Furosemide [Lasix 20 MG (*)] 20 mg PO BID #60 tab 01/30/18 [Last Taken Unknown] Ibuprofen [Motrin (*)] 200 mg PO DAILY PRN #30 tab 01/30/18 [Last Taken Unknown] Ibuprofen [Motrin (*)] 400 mg PO HS PRN #30 tab 01/30/18 [Last Taken Unknown] Discharge Medications: Refer to the Discharge Home Medication list for PRN reason. - Orders Services needed: Registered Nurse, Certified Meteorology Professor, Physical Therapy Isolation Type: Droplet Isolation Diet Recommendation: sodium restricted, fluid restriction (use comment for amount) (2 liters) Diet Texture: Regular Texture Diet Additional Instructions: Dressing change order for L anterior lower leg: to be changed every 3 days and as needed until healed. 1) cleanse w/ NS and gauze. 2) apply skin prep to jamaal-wound skin. 3) apply Hydrogel wound gel to wound bed. 4) cover w/ Allevyn Life or other bordered foam dressing. CALIXTO Bernal - Labs/Radiology BMP Date: 02/02/18 - Follow Up Care Current Providers and Referrals: [facility] [Other] - As per Instructions
--- NOTE | 2018-01-30 14:40 | GDS ---
[f rep st] DISCHARGE SUMMARY DISCHARGE DIAGNOSIS: 1. Acute on chronic decompensated diastolic heart failure. 2. Acute upper respiratory viral infection. 3. Acute hypoxic respiratory failure. 4. Lewy body dementia with agitation. 5. History of thyroid cancer. 6. Hypothyroidism. HISTORY OF PRESENT ILLNESS: A 77-year-old female with history of Lewy body dementia, diastolic heart failure, presenting with shortness of breath. This has progressed over several weeks, especially when she lays flat. She also reports a 20 pound weight gain over the last month. Denies any fevers, chills, or sweats. She takes Lasix 20 mg daily, but misses doses intermittently at her facility per her refusing. HOSPITAL COURSE: 1. Acute on chronic diastolic heart failure: diuresed with IV Lasix and transitioned to 20mg PO BID. I had a long discussion with her daughter as patient is not always compliant with her medications and she cannot be forced. Her Lewy body dementia will be prohibitive in this manner. Recommend a low- sodium diet, 2 L fluid daily. 2. Acute hypoxic respiratory failure. multifactorial with infection and edema. This has resolved. 3. Lewy body dementia with agitation: Again, I had a lengthy conversation with the daughter as this will likely lead to further complications down the road with her medical care. For example, she intermittently does not take Lasix. There was an ethics consult and they did not deem patient to be without medical capacity, thus we cannot force her to take these medications. Can consider using Seroquel for agitation in the future if needed, but note there is a black box warning. She is followed by Dr. Dominguez. 4. History of thyroid cancer. Status post thyroidectomy. Levothyroxine. 5. Goals. Emphasized that she and her family need to discuss care from now on. I asked if her mother would want full medical treatment including further hospitalization versus hospice care. Isabella is to have a meeting with the rest of her family, but at this time, palliative care will be arranged as an outpatient. 6. Disposition: Patient is stable for discharge back to [facility]. NEW MEDICATIONS: Changed Lasix to 20 mg twice daily. FOLLOWUP: 1. BMP. 2. Low sodium, 2 L fluid diet. PHYSICAL EXAMINATION: VITAL SIGNS: Today, temperature 36.3, blood pressure 109/ 76, heart rate 70s, respirations 16, 94% on room air. GENERAL: Well appearing, smiling, eating lunch. HEENT PERRLA. CARDIOVASCULAR: Regular rate and rhythm. + 1 ankle edema. Lungs: Diminished at the bases. No crackles. ABDOMEN: Soft, nontender, nondistended. Positive bowel sounds GENITOURINARY: No Cline. MUSCULOSKELETAL: Moving all 4 extremities. NEUROLOGIC: 2 through 12 intact. TIME SPENT ON DISCHARGE: Greater than 35 minutes coordinating care and transfer to [facility]. /[id number]/MODL MTDD
--- NOTE | 2018-01-30 17:15 | ASMTLACE ---
LACE Length of stay for Answers: 4-6 days current admission Acuity / Level of Answers: Yes Care: Did the patient have an inpatient admission? Comorbidities - select Answers: Dementia all that apply Opioid dependence / Chronic pain # of Emergency department Answers: 1-2 visits in the last 6 months Score: 15 Date Signed: 01/30/2018 12:17 PM Electronically Signed By:Heavenly Subramanian RN
--- NOTE | 2018-01-31 13:42 | ASDISCHSUM ---
Discharge Information Plan Status:SNF Medically Cleared to Leave:01/30/2018 Discharge Date:01/30/2018 02:41 PM D/C Disposition:Alf Facility ADT D/C Disposition:Home, Routine, Self-Care Projected Discharge Date:01/28/2018 11:00 AM Transportation at D/C:Wheelchair Van Discharge Delay Reason: Follow-Up Date:01/28/2018 11:00 AM Discharge Slot: Final Diagnosis: Placement Information Referral Type:*[facility]/SNF Referral ID:[id number] Provider Name:[facility] Address 1:[address] Address 2: City:[place] Selection Factors: State:[place] Referral Type:Palliative Care Referral ID:[id number] Provider Name:Ivana Montes ([facility]) Address 1:[address] [place] [address] Address 2:[facility] [address] City:[place] Selection Factors: State:[place] Patient Contact Information Contact Name:RAVINDER Relationship:Daughter Address:[address] Home Phone: City:[place] Alternate Phone: [facility]/Zip Code:[place] [address] Email: Financial Information Financial Class:Medicare Advantage Plans Primary Plan Desc:RHONDA Nolio MEDICARE Primary Plan Number:[id number] Secondary Plan Desc:MED[place] Secondary Plan Number:[id number] Assessment Information LACE LACE Length of stay for Answers: 4-6 days current admission Acuity / Level of Answers: Yes Care: Did the patient have an inpatient admission? Comorbidities - select Answers: Dementia all that apply Opioid dependence / Chronic pain # of Emergency department Answers: 1-2 visits in the last 6 months Score: 15 Date Signed: 01/30/2018 12:17 PM Electronically Signed By:Heavenly Subramanian RN [facility] CM Progress Note CM Note CM Note Notes: Chart reviewed for discharge planning purposes. Admitted via ED from [facility] with increasing cough, Has notable been refusing her lasix. Her BNP is elevated. Needs to be determined. Referral placed in allscripts to [facility] where she will likely return. Plan: To [facility] when medically cleared for discharge Date Signed: 01/26/2018 12:29 PM Electronically Signed By:Meme Cuevas RN [facility] CM Progress Note CM Note CM Note Notes: 01/29/2018 Case Management Note Discussed case with daughter Isabella on the phone. Reiterated that decisional capacity waxes and wanes and any findings here at [facility] will not carry over to [facility]. At Isabella's request emailed release of information for medical records. Requested Isabella fax back signed copy of release. Discussed benefits of Palliative Care. Isabella in agreement. Faxed referral to [facility]. Spoke with Leanne Go on the phone. [facility] to contact Isabella for info and will see pt at [facility] after d/c. Updated [facility] on the phone. [facility] plans to start a dementia/memory care unit this summer. Pt to return to [facility] upon d/c to the [facility]Term Care unit where pt resides. Case Management d/c poc: return to [facility] with [facility]. Case Management to follow. Date Signed: 01/29/2018 12:54 PM Electronically Signed By:Heavenly Subramanian RN Case Management Discharge Plan Note Case Management Discharge Discharge Order Complete? Answers: Yes Patient to Obtain Answers: Other Notes: [facility] Medications Transportation Arranged Answers: Other Notes: arranged by [facility] Transport will Pick (Date 01/30/2018 02:30 PM & Time) Faxed Final Orders Answers: Yes Agency/Facility Transfer Answers: Yes Report Printed & Faxed to Receiving Agency Family Notified Answers: Yes Notes: per cloth printing inspector Comments Notes: 01/30/2018 Case Management Note D/C to [facility]. Faxed final orders. RN notified GUS Mason. Notified [facility] of Palliative consult. RN called report. [facility] arranged w/c transport. Date Signed: 01/30/2018 03:01 PM Electronically Signed By:Heavenly Subramanian RN Intervention Information Intervention Type:*LAM-Signed Date of Service:01/27/2018 12:09 PM Patient Type:Observation Staff Member:JOVAN Subramanian, Heavenly Hours: Discipline: Severity: Comment: Intervention Type:IM-Pt. Not Available Date of Service:01/30/2018 12:13 PM Patient Type:Inpatient Staff Member:Maryuri Lockhart Hours: Discipline: Severity: Comment:Pt unable to sign due to dementia.
== END 2018-01-30 14:41 | DRG 291 ==
LOC: EDUNIT# → OBSVTOIN 05:39 → F2W 07:47
PROVIDERS: ADMIT Student in an Organized Health Care Education/Training Program; ATTEND Student in an Organized Health Care Education/Training Program
DX: I50.31 Acute diastolic (congestive) heart failure (principal); J96.01 Acute respiratory failure with hypoxia; J06.9 Acute upper respiratory infection, unspecified; E03.9 Hypothyroidism, unspecified; Z85.850 Personal history of malignant neoplasm of thyroid; G31.83 Neurocognitive disorder with Lewy bodies; F02.80 Dementia in other diseases classified elsewhere, unspecified severity, without behavioral disturbance, psychotic disturbance, mood disturbance, and anxiety
CPT/HCPCS: 97162-GP; 97166-GO; 97530-GO; 97530-GP; 97535-GO; G0378; G8987-GO-CM; G8988-GO-CK; J1650; J1940